=== PATIENT | male | born 1940 | race Caucasian/White ===

== ENCOUNTER → 2017-08-11 | Outpatient (CLI) | payer MEDICARE, OTHER ==
--- NOTE | 2017-08-24 00:10 | PROC ---
[address] [address] PROCEDURE REPORT Name: ERIC MONACO Room: [facility].#: [id number] Admission: 08/11/17 Attend Phys: Austin Del Toro MD Discharge: Date of : 44 Report #: [id number] THIS REPORT FOR: //name// CC: Austin Marshall MD DATE OF SERVICE: 08/11/2017 REFERRING PHYSICIANS: Dr. Pena; Ashish Marshall MD; Rashid Pedroza MD; Tucker Rainey MD [facility]; Hasmukh Alvarenga MD. [facility] phone is [phone]. 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 The radiation therapy was completed on 03/25/2010. The patient also had colon cancer resected on 01/28/2009. PROCEDURE: Nasopharyngolaryngoscopy. FINDINGS: On nasopharyngolaryngoscopy via the left nostril after application of a small amount of 2% viscous lidocaine orally and 2% viscous lidocaine to the left nostril using a cotton swab, there were no visible lesions involving the nasopharynx or posterior oropharynx. The true vocal cords were normally mobile bilaterally without any visible lesions. There was no evidence of head and neck cancer. Thank you for allowing me to participate in the care of this patient. <ELECTRONICALLY SIGNED> By: Austin Del Toro MD 08/24/17 0010 1231 [id number] Del Toro MD /nt
--- NOTE | 2017-08-24 00:50 | ONC ---
[place] [address] RADIATION ONCOLOGY NOTE Name: ERIC MONACO Room: [facility].#: [id number] Admission: 08/11/17 Attend Phys: Austin Del Toro MD Discharge: Date of : 44 Report #: [id number] THIS REPORT FOR: //name// Cc: Dr. 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 The radiation therapy was completed on 03/25/2010. The patient had colon cancer resected on 01/28/2009 INTERVAL NOTE: The patient has a full set of upper and lower dentures. He is eating a regular diet. He feels like he is eating well. He has a good appetite. His last colonoscopy with Dr. Leggett was around 2015, which he said was unremarkable. MEDICATIONS: Clopidogrel, lisinopril, amlodipine, pantoprazole, hydralazine, bumetanide, carvedilol, Klor-Con, doxazosin and iron supplements. SOCIAL HISTORY: The patient is . Cigarettes: He Smoked since around 1960 about half a pack per day, he quit smoking cigarettes around 08/2015, and he now smokes electronic cigarettes. REVIEW OF SYSTEMS: RESPIRATORY: The patient's breathing was baseline. He was not short of breath during his appointment. GASTROINTESTINAL: He has a good appetite. He has about 2 bowel movements a day, takes laxatives as needed for constipation. PHYSICAL EXAMINATION: VITAL SIGNS: The patient weighed 240 pounds on 08/11/2017, he was 231.6 pounds on 05/17/2017. On 08/11/2017, blood pressure was 127/80, pulse 97, respirations 24. LYMPH NODES: He had no palpable cervical, supraclavicular or inguinal lymphadenopathy. HEAD, EYES, EARS, NOSE AND THROAT: Mouth had no suspicious visible lesions or suspicious palpable lesions. He wears upper and lower dentures. On nasopharyngolaryngoscopy via the left nostril after application of a small amount of 2% viscous lidocaine orally and 2% viscous lidocaine to the left nostril using a cotton swab, [place] [address] RADIATION ONCOLOGY NOTE Name: ERIC MONACO Room: [facility]#: [id number] Admission: 08/11/17 Attend Phys: Austin Del Toro MD Discharge: Date of : 44 Report #: [id number] were no visible lesions in the nasopharynx. There were no visible lesions in the posterior oropharynx. The true vocal cords were normally mobile bilaterally without any visible lesions. HEART: Had a regular rate and rhythm without murmur. LUNGS: were clear to auscultation. ABDOMEN: Not tender. Spleen was not palpable. Liver was at the costal margin. 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 LABORATORY DATA: From 08/10/2017, sodium 134, potassium 4.3, BUN 29, creatinine 1.36. AST 16. TSH was 2.095. CEA was 2.5. RADIOLOGIC DATA: The patient had a chest CT on 08/10/2017, which revealed resolution of the previously noted right lower lobe pulmonary nodule consistent with resolution of a focal inflammatory infectious process. No new pulmonary nodules were identified. He had a stable mild mediastinal lymphadenopathy, which was thought to be a reactive in nature. He had mild emphysema. He had chronic coronary artery calcification. ASSESSMENT AND PLAN: 1. History of laryngeal cancer- There is no evidence of laryngeal cancer at this time. A requisition was written for a TSH in about 1 year and the patient was asked to schedule a followup appointment to see me afterwards. 2. History of colon cancer- There is no evidence of colon cancer at this time. A requisition was written for a complete blood count, CEA level and complete metabolic panel in 08/2018. He was asked to schedule a followup appointment to see me afterwards 3. Aortic aneurysm- He follows up with his director client services, Dr. Rainey, with regards to that issue. 4. Coronary artery calcifications- He follows up with his director client services, Dr. Rainey, with regards to that issue. 5. Mild chronic renal insufficiency- He follows up with the distribution supervisor, Dr. Fuller, with regards to that issue. Thank you for allowing me to participate in the care of this patient. <ELECTRONICALLY SIGNED> By: Austin Del Toro MD 08/24/17 0050 1241 [id number] Del Toro MD /nt
== END ==
LOC: M.RTH 02:39
DX: Z08 Encounter for follow-up examination after completed treatment for malignant neoplasm (principal); I71.9 Aortic aneurysm of unspecified site, without rupture; I25.10 Atherosclerotic heart disease of native coronary artery without angina pectoris; N18.9 Chronic kidney disease, unspecified; Z85.21 Personal history of malignant neoplasm of larynx; Z85.038 Personal history of other malignant neoplasm of large intestine; Z87.891 Personal history of nicotine dependence

== ENCOUNTER → 2018-08-12 | Outpatient (CLI) | payer MEDICARE, OTHER ==
--- NOTE | 2018-08-22 10:57 | ONC ---
[place] [address] RADIATION ONCOLOGY NOTE Name: ERIC MONACO Room: [facility]..#: [id number] Admission: 08/12/18 Attend Phys: Austin Del Toro MD Discharge: Date of : 44 Report #: [id number] THIS REPORT FOR: //name// CC: Austin Leggett DATE OF PROCEDURE: 08/12/2018 REFERRING PHYSICIANS: Include Rashid Pedroza MD; Tucker Rainey MD [facility]; Shawna Pena MD; Hasmukh Alvarenga MD and Lopez Marshall MD. [facility] phone is [phone]. 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 The radiation therapy was completed on 03/25/2010. The patient also had a colon cancer resected on 01/28/2009. PROCEDURE: Nasopharyngolaryngoscopy. FINDINGS: On nasopharyngolaryngoscopy via the left nostril after application of a small amount of 2% viscous lidocaine orally and 2% viscous lidocaine to the left nostril using a cotton swab, there were no visible lesions involving the nasopharynx or posterior oropharynx. The true vocal cords were normally mobile bilaterally without any visible lesions. There was no evidence of head and neck cancer. Thank you for allowing me to participate in the care of this patient. <ELECTRONICALLY SIGNED> By: Austin Del Toro MD 08/22/18 1057 1143 1809Austin Del Toro MD /nt
--- NOTE | 2018-08-22 11:06 | ONC ---
[place] [address] RADIATION ONCOLOGY NOTE Name: ERIC MONACO Room: [facility] Lola.Tiana.#: [id number] Admission: 08/12/18 Attend Phys: Austin Del Toro MD Discharge: Date of : 44 Report #: [id number] THIS REPORT FOR: //name// CC: Austin Marshall DATE OF SERVICE: 08/12/2018 REFERRING PHYSICIANS: Dr. Tucker Rainey, also Dr. Leggett, Dr. Shawna Pena, Dr. Rashid Pedroza, Dr. Hasmukh Alvarenga, Dr. Ashish Marshall. [facility] phone is [phone]. 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 The radiation therapy was completed on 03/25/2010. The patient's colon cancer was resected on 01/28/2009. INTERVAL NOTE: The patient wears a full set of upper and lower dentures. He is eating a regular diet. He feels like he is eating well and he said that his last colonoscopy with Dr. Leggett was around 2015 and that he is going to be returning there for another colonoscopy somewhere between 2018 and 2020. The patient said that the colonoscopy in 2015 was unremarkable. MEDICATIONS: Include clopidogrel, lisinopril, amlodipine, pantoprazole, hydralazine, bumetanide, carvedilol, Klor-Con, doxazosin, and iron supplement. SOCIAL HISTORY: The patient is . Cigarettes: he smoked since about 1960 and he smoked about a half pack per day. He quit smoking cigarettes around 08/2015. He switched to electronic cigarettes. REVIEW OF SYSTEMS: RESPIRATORY: The patient's breathing was baseline. He was not short of breath. GASTROINTESTINAL: He has a good appetite. He has about 1-2 bowel movements a day. He takes laxatives as needed for constipation. PHYSICAL EXAMINATION: VITAL SIGNS: The patient weighed 235 pounds on 08/12/2018. He was 240 pounds on 08/11/2018. On 08/12/2018, blood pressure was 126/68, pulse 60, respirations 18, oxygen saturation 94%. LYMPH NODES: He had no palpable cervical [place] [address] RADIATION ONCOLOGY NOTE Name: ERIC MONACO Room: [facility]#: [id number] Admission: 08/12/18 Attend Phys: Austin Del Toro MD Discharge: Date of : 44 Report #: [id number] HEAD, EYES, EARS, NOSE AND THROAT: Mouth had no suspicious visible lesions or suspicious palpable lesions. On nasopharyngolaryngoscopy via the left nostril after application of a small amount of 2% viscous lidocaine orally and 2% viscous lidocaine to the left nostril using a cotton swab, there were no visible lesions in the nasopharynx and no visible lesions in the posterior oropharynx. The true vocal cords were normally mobile bilaterally without any visible lesions. HEART: Had a regular rate and rhythm without murmur. LUNGS: were clear to auscultation. ABDOMEN: Not tender. Spleen was not palpable. Liver was at the costal margin. LABORATORY DATA: From 08/11/2018, white blood cells were 7.0, hemoglobin 12.4, platelets 183,000. TSH was 2.27. Sodium was 134, potassium was 4.6, creatinine was 1.51. His creatinine on 08/10/2018 was 1.36 and his CEA level was 2.2. ASSESSMENT AND PLAN: 1. History of laryngeal cancer- There is no evidence of laryngeal cancer at this time. A requisition was written for a TSH in about 1 year and the patient was asked to schedule a follow up appointment to see me afterwards. 2. History of colon cancer- There is no evidence colon cancer at this time. A requisition was written for a complete blood count, CEA level, and complete metabolic panel in 08/2019. He was asked to schedule a follow up appointment to see me afterwards. 3. Aortic aneurysm- He follows up with his bladder changer, Dr. Rainey, with regards to this issue. 4. Mild chronic renal insufficiency- He follows up with his wildlife removal specialist, Dr. Pena with regards to this issue. Thank you for allowing me to participate in the care of this patient. <ELECTRONICALLY SIGNED> By: Austin Del Toro MD 08/22/18 1106 1148 1823Damanda Del Toro MD /nt
== END ==
LOC: M.RTH 09:30
DX: Z08 Encounter for follow-up examination after completed treatment for malignant neoplasm (principal); I71.4 Abdominal aortic aneurysm, without rupture; N18.9 Chronic kidney disease, unspecified; Z85.21 Personal history of malignant neoplasm of larynx; Z85.038 Personal history of other malignant neoplasm of large intestine

== ENCOUNTER → 2019-09-01 | Outpatient (CLI) | payer MEDICARE, OTHER ==
--- NOTE | 2019-09-03 20:51 | ONC ---
[place] [address] RADIATION ONCOLOGY NOTE Name: ERIC MONACO Room: [facility].#: [id number] Admission: 09/01/19 Attend Phys: Austin Del Toro MD Discharge: Date of : 44 Report #: [id number] THIS REPORT FOR: //name// CC: Austin Huber DATE OF PROCEDURE: 09/01/2019 REFERRING PHYSICIANS: 1. Dr. Shawna Pena 2. Dr. Marshall 3. Dr. Alvarenga 4. Dr. Rainey 5. Dr. Pedroza 6. Dr. 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 The radiation therapy was completed on 03/25/2010. The patient has had a colon cancer resected on 01/28/2009. PROCEDURE: Nasopharyngolaryngoscopy. FINDINGS: On nasopharyngolaryngoscopy via the left nostril after application of a small amount of 2% viscous lidocaine orally and 2% viscous lidocaine to the left nostril, using a cotton swab, there were no visible lesions involving the nasopharynx or posterior oropharynx. The true vocal cords were normally mobile bilaterally without any visible lesions. There was no evidence of head or neck cancer. Thank you for allowing me to participate in the care of this patient. <ELECTRONICALLY SIGNED> By: Austin Del Toro MD 09/03/19 2051 1458 0019Austin Del Toro MD /nt
--- NOTE | 2019-09-03 21:08 | ONC ---
[address] [address] RADIATION ONCOLOGY NOTE Name: ERIC MONACO Room: [facility]..#: [id number] Admission: 09/01/19 Attend Phys: Austin Del Toro MD Discharge: Date of : 44 Report #: [id number] THIS REPORT FOR: //name// CC: Austin Huber DATE OF SERVICE: 09/01/2019 REFERRING PHYSICIANS: Dr. Rashid Pedroza, Dr. Tucker Rainey, Dr. Leggett, Dr. Shawna Pena, Dr. Hamsukh Alvarenga, Dr. Ashish Marshall, Dr. Huber. [facility] phone is [phone]. PRIMARY SITE AND HISTOPATHOLOGY: The patient received definitive radiation therapy for a stage 1 right true vocal cord cancer. The radiation therapy was completed on 03/25/2010. The patient has had a colon cancer it was resected on 01/28/2009. INTERVAL NOTE: The patient has a full set of upper and lower dentures. He is eating a regular diet. He feels like he is eating well. He indicated that he has had a colonoscopy in [address] Leggett that was unremarkable. The patient said he was recently treated for cellulitis of his right lower extremity. He was also recently changed in April to warfarin and that is managed by Dr. Huber. MEDICATIONS: Clopidogrel, lisinopril, amlodipine, pantoprazole, hydralazine, bumetanide, carvedilol, Klor-Con and Xarelto was discontinued. He is now taking warfarin. SOCIAL HISTORY: The patient is . Cigarettes: he smoked since about 1960. He smoked about half pack per day, he quit smoking cigarettes around 08/2015. He switched to electronic cigarettes. REVIEW OF SYSTEMS: RESPIRATORY: The patient's breathing was baseline. He was not short of breath. GASTROINTESTINAL: He has a good appetite. He has about 1-2 bowel movements a day. He takes laxatives as needed for constipation. PHYSICAL EXAMINATION: VITAL SIGNS: The patient weighed 230 pounds on 09/01/2019, he was 235 [place] [address] RADIATION ONCOLOGY NOTE Name: ERIC MONACO Room: [facility]#: [id number] Admission: 09/01/19 Attend Phys: Austin Del Toro MD Discharge: Date of : 44 Report #: [id number] 04/12/2019 and on 09/01/2019 blood pressure was 114/63, pulse 102, oxygen saturation 95%, respirations 22. LYMPH NODES: He had no palpable cervical or supraclavicular lymphadenopathy. HEAD, EYES, EARS, NOSE AND THROAT: Mouth had no suspicious visible lesions or suspicious palpable lesions. On nasopharyngolaryngoscopy via the left nostril after application of a small amount of 2% viscous lidocaine orally and 2% viscous lidocaine to the left nostril, using a cotton swab, there were no visible lesions in the nasopharynx, no visible lesions in the posterior oropharynx. The true vocal cords were normally mobile bilaterally without any visible lesions. HEART: Had a regular rate and rhythm without murmur. LUNGS: were clear to auscultation. ABDOMEN: Not tender. Spleen was not palpable. Liver was at the costal margin. LABORATORY DATA: From 08/07/2019, his hemoglobin was 10.8, it was 12.4 on 08/11/2018. On 08/07/2019, platelets 173,000, white blood cell was 5.3. Sodium 137, potassium 4.4, creatinine was 1.68, it was 1.51 in the past. TSH was 2.23. CEA level was 2.4. RADIOLOGIC DATA: Chest CT scan from 08/10/2018 revealed no new pulmonary nodules, unremarkable. ASSESSMENT AND PLAN: 1. History of laryngeal cancer- There is no evidence of laryngeal cancer at this time. A requisition was written for a TSH in about 1 year and the patient was asked to schedule a followup appointment to see me afterwards. 2. History of colon cancer- There is no evidence of colon cancer at this time. A CEA level was ordered in about 1 year and the patient was asked to schedule a follow up appointment with me afterwards. 3. Aortic aneurysm- He follows up with his summer nanny, Dr. Rainey with regards to this issue. 4. Chronic renal insufficiency- He will be referred back to Dr. Shawna Pena, the massage therapy instructor to continue following up with this issue. 5. Worsening anemia- The patient will be referred back to his production corrugator/oncologist, Dr. Huber to manage this issue. 6. History of smoking- a screening chest [place] [address] RADIATION ONCOLOGY NOTE Name: ERIC MONACO Room: [facility] Jacqui#: [id number] Admission: 09/01/19 Attend Phys: Austin Del Toro MD Discharge: Date of : 44 Report #: [id number] Thank you for allowing me to participate in the care of this patient. <ELECTRONICALLY SIGNED> By: Austin Del Toro MD 09/03/19 2108 1504 [id number] Del Toro MD /nt
== END ==
LOC: M.RTH 08-11 09:30
DX: Z09 Encounter for follow-up examination after completed treatment for conditions other than malignant neoplasm (principal); N18.9 Chronic kidney disease, unspecified; D64.9 Anemia, unspecified; F17.200 Nicotine dependence, unspecified, uncomplicated; Z92.3 Personal history of irradiation; Z85.21 Personal history of malignant neoplasm of larynx; Z85.038 Personal history of other malignant neoplasm of large intestine